=== PATIENT | male | born 2000 | race Caucasian/White ===

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

== ENCOUNTER 2019-06-03 17:40 | Emergency (ER) | payer BC ==
[2019-06-03 18:05] VITALS: BP 134/81
--- NOTE | 2019-06-03 18:26 | UC ---
UC General HPI - HPI Summary HPI Summary: 18yo with 3 days of nausea, vomiting and diarrhea, along with sore throat and cough. He has a dull headache and low grade fever. Voided within the past 2 hours, but urine is dark in color. He feels dizzy and lightheaded. No known infectious contacts, works as a cook at [employer]. last emesis was yesterday, but aware has taken less than 1 liter of fluids today , only water. - History of Current Complaint Chief Complaint: UCGeneralIllness Stated Complaint: VOMITING,FEVER,YANES Time Seen by Provider: 06/03/19 18:15 Hx Obtained From: Patient Onset/Duration: Sudden Onset, Lasting Days - 3 Timing: Constant Onset Severity: Moderate Current Severity: Moderate Pain Intensity: 8 Associated Signs & Symptoms: Positive: Diarrhea - persistent., Headache - dull, Nausea. Negative: Abdominal Pain, Back Pain - Allergy/Home Medications Allergies/Adverse Reactions: Allergies Allergy/AdvReac Type Severity Reaction Status Date / Time No Known Allergies Allergy Verified 06/03/19 17:57 PMH/Surg Hx/FS Hx/Imm Hx Previously Healthy: Yes - Surgical History Surgical History: None - Family History Known Family History: Positive: None - parents healthy, not aware of extended family hx - Social History Occupation: Employed Full-time Lives: With Family Alcohol Use: None Substance Use Type: None Smoking Status (MU): Never Smoked Tobacco - Immunization History Vaccination Up to Date: Yes Review of Systems All Other Systems Reviewed And Are Negative: Yes Constitutional: Positive: Fever, Fatigue Skin: Positive: Negative Eyes: Positive: Negative ENT: Positive: Sore Throat Respiratory: Positive: Cough Cardiovascular: Positive: Negative Gastrointestinal: Positive: Vomiting, Diarrhea, Nausea. Negative: Abdominal Pain Genitourinary: Positive: Negative Motor: Positive: Negative Neurovascular: Positive: Negative Musculoskeletal: Positive: Negative Neurological: Positive: Negative Psychological: Positive: Negative Is Patient Immunocompromised?: No Physical Exam Triage Information Reviewed: Yes Appearance: Ill-Appearing - looks mildly unwell, not septic. Vital Signs: Initial Vital Signs Temp 100 F 06/03/19 17:58 Pulse 107 06/03/19 17:58 Resp 20 06/03/19 17:58 BP 134/81 06/03/19 17:58 Pulse Ox 97 06/03/19 17:58 Eye Exam: Other - MARGARITA, no photophobia Eyes: Positive: Conjunctiva Clear ENT: Positive: Pharyngeal erythema, TMs normal. Negative: Tonsillar swelling, Tonsillar exudate Neck exam: Normal Neck: Positive: Supple, Nontender, No Lymphadenopathy Respiratory: Positive: Lungs clear, No respiratory distress Cardiovascular: Positive: RRR, No Murmur Abdomen Description: Positive: Nontender, No Organomegaly, Soft Bowel Sounds: Positive: Present Musculoskeletal Exam: Normal Neurological Exam: Normal Psychological Exam: Normal Skin Exam: Normal Course/Dx - Course Course Of Treatment: Discussed oral rehydration, use of zofran for nausea, off work. - Differential Dx - Multi-Symptom Differential Diagnoses: Other - gastroenteritis - Diagnoses Provider Diagnosis: Gastroenteritis, Dehydration Discharge ED - Sign-Out/Discharge Documenting (check all that apply): Patient Departure All imaging exams completed and their final reports reviewed: No Studies - Discharge Plan Condition: Stable Disposition: HOME Patient Education Materials: Gastroenteritis (ED), Dehydration (ED) Forms: *Work Release Referrals: No Primary Care Phys,NOPCP [Primary Care Provider] - Additional Instructions: You have been given a dose of ondansetron here to decrease nausea. Begin oral rehydration using Pedialyte or fluids such as Gatorade, gingerale, soup broths. Aim for 1.5 liters of fluid before bed tonight--goal is light yellow urine. Eat lightly, and you might try some soup or toast, cooked fruits and vegetables once you are tolerating fluids. \ You can use imodium for loose stools. - Billing Disposition and Condition Condition: STABLE Disposition: Home
[2019-06-03] MEDS ORDERED: Ondansetron ODT TAB* 4 MG PO ONE (18:35)
== END 2019-06-03 18:49 | disposition home or self-care (01) ==
LOC: UCCORT 17:40
DX: K52.9 Noninfective gastroenteritis and colitis, unspecified (principal); E86.0 Dehydration; J02.9 Acute pharyngitis, unspecified; R05 Cough
CPT/HCPCS: 99212; A9270-GY; G0463